=== PATIENT | female | born 2005 | race African-American/Black ===

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

== ENCOUNTER 2024-10-17 19:20 | Emergency (ER) | payer OTHER, SELFPAY ==
[2024-10-17 19:20] VITALS: BP 121/96; PULSE 111; RESP 18; TEMP 36.9; O2SAT 100; BMI 29.3
[2024-10-17 19:22] VITALS: BP 124/83; PULSE 74; RESP 18; TEMP 36.6; O2SAT 97
--- NOTE | 2024-10-17 19:27 | EDS_ITS ---
HPI History of Present Illness Chief Complaint: Shortness of Breath Informant: patient Onset/Context/Timing Onset: Yesterday Context: gradual Timing: Continuous Quality: Positive for Dyspnea on exertion Worsened by: Exertion and - (Standing) Relieved by: Nothing Associated Symptoms cough, fever, sore throat, yellow sputum and green sputum; Negative for rhinorrhea, post nasal drip, ear pain, clear sputum or white sputum Narrative Narrative: Patient presents with shortness of breath that began yesterday. Patient states that it became worse today. Patient states that it came on gradually. Patient states that has been constant. Patient states her breathing is worse with any exertion. Patient states it was also worse with standing. Patient states nothing seems to help with it. Patient admits to a cough with yellow and green sputum. Patient also admits to a sore throat. Patient states she had a fever 2 days ago that was up to 102. Patient also admits to some pain in her chest that is sharp and is worse with coughing and deep breathing. Patient states she went to the wellness center at the [facility] [place] and was referred to the emergency department for possible pneumonia. [facility] Medical History no medical history no medical history Home Medications ?Medication ?Instructions ?Recorded ?Last Taken ?Type cyclobenzaprine 10 mg tablet 10 mg PO TID PRN Muscle Spasm #20 10/28/23 Unknown Rx TABLETS Allergy/AdvReac Type Severity Reaction Status Date / Time No Known Allergies Allergy Verified 10/17/24 19:20 Family History no significant family his Surgical History no surgical history no surgical history Social History Smoking Status: Never smoker ROS [facility] ED Constitutional Constitutional ED: Reports fever(s); Denies chills Eyes Eyes: Reports blurry vision; Denies diplopia ENT ENT ED: Reports sore throat; Denies rhinorrhea Cardiovascular Cardiovascular: Reports chest pain; Denies palpitations Respiratory/Chest Respiratory/Chest: Reports cough and dyspnea Gastrointestinal Gastrointestinal: Denies nausea or vomiting Genitourinary Genitourinary ED: Denies dysuria or hematuria Musculoskeletal Musculoskeletal: Denies back pain or neck pain Integumentary Denies abscess or rash Neurologic Neurologic: Denies headache(s) or weakness Allergic/Immunologic Allergic/Immunologic ED: Denies mouth swelling or urticaria EXAM Physical Exam Const Vital Signs: 10/17/24 19:20 10/17/24 19:22 10/17/24 19:28 Temperature 98.4 F 97.9 F Temperature Source Oral Oral Pulse Rate 111 H 74 Respiratory Rate 18 18 Respiratory Effort Short of Breath Respiratory Depth Normal Respiratory Pattern Normal Blood Pressure 121/96 H 124/83 H Blood Pressure Mean 104 96 Pulse Ox 100 97 Oxygen Delivery Method Room Air Room Air Room Air 10/17/24 20:22 Temperature 97.8 F Temperature Source Oral Pulse Rate 64 Respiratory Rate 18 Respiratory Effort Respiratory Depth Respiratory Pattern Blood Pressure 132/74 H Blood Pressure Mean 93 Pulse Ox 98 Oxygen Delivery Method T-piece Positive well nourished and well developed General Appearance ED: well developed and NAD HEENT Reports moist mucous membranes Neck supple and no JVD Resp normal respiratory effort Auscultation: diminished lung sounds diffuse Cardio regular rhythm Rate: tachycardic GI non-tender and non-distended Palpation: soft Neuro oriented x3, CN's II-XII intact bilaterally and no sensory deficits noted [place] Coma Scale: document GCS findings Spontaneous Obeys Commands Oriented 15 Sensorium / Orientation: alert Speech: speech normal Motor Exam: strength 5/5 throughout Psych mental status grossly normal MDM MDM MDM Narrative Medical decision making narrative: Differential diagnose includes pneumonia, bronchitis, and viral upper respiratory infection. Serum hCG will be obtained to assess for . Chest x-ray will be obtained to assess for pneumonia and pneumothorax. Lab Data Attestation: I reviewed the patient's lab results. Lab results narrative: Serum hCG was reviewed and was negative. Labs: Laboratory Results - last 24 hr 10/17/24 19:38 Serum , Qual NEGATIVE Radiography Chest X-Ray - ED: 2 View, Read by ED Physician, Read by Radiologist and No Acute Disease Diagnostic Testing: Clinical Impression(s) from Imaging Studies Chest X-Ray 10/17/24 19:58 IMPRESSION: No radiographic evidence of acute cardiopulmonary disease. Electronically Signed: Tay Pereira MD at 20:39 EST , PA and lateral chest x-ray was obtained. There are 2 views. On my independent interpretation, lung cardenas are clear. There is normal cardiac silhouette. Bony thorax is normal. There is no acute process noted. Radiologist also interpreted the x-ray and agrees. Treatment and Re-Evaluation :: Patient was given a DuoNeb aerosol here. Patient was feeling better on reevaluation. Patient was advised of her findings. Patient was advised that this is most likely a viral upper respiratory infection. Patient was instructed to drink plenty of fluids. Patient was instructed to take Tylenol or ibuprofen as needed for any pain or fevers. Patient was instructed to follow-up with her primary care physician in 5 to 7 days. Patient understood and was agreeable with the plan. All questions were answered. Discharge Plan Triage Chief Complaint: Shortness of Breath ED Provider: Himanshu Florentino Dx/Rx/DC Orders Clinical Impression: Viral URI, Cough Instructions: ED URI, Viral, No Abx (Adult) Prescriptions: No Action cyclobenzaprine 10 mg tablet 10 mg PO TID PRN (Reason: Muscle Spasm) Qty: 20 0RF Primary Care Provider: Care Physician,No Primary Referrals: Care Physician,No Primary [Primary Care Provider] - Print Language: Bahamian Disposition Disposition: Home, Self Care
[2024-10-17 19:48] VITALS: PULSE 106; RESP 16
[2024-10-17] MEDS: Ipratropium/Albuterol Sulfate 3 ML AMPUL.NEB INHALATION (19:48)
--- NOTE | 2024-10-17 19:58 | RAD_ITS ---
EXAM: XR CHEST, 2 VIEWS CLINICAL INDICATION: Cough TECHNIQUE: Frontal and lateral views of the chest. COMPARISON: No relevant prior studies available. FINDINGS: LUNGS AND PLEURAL SPACES: Unremarkable. No consolidation or edema. No pneumothorax. No effusion. HEART: Unremarkable. Cardiac silhouette not enlarged. MEDIASTINUM: Central airways and mediastinal contour are unremarkable. BONES/JOINTS: Unremarkable. No acute fracture. SOFT TISSUES: Unremarkable. RAD/Chest PA and Lateral IMPRESSION: No radiographic evidence of acute cardiopulmonary disease. Electronically Signed: Tay Pereira MD at 20:39 EST ,
[2024-10-17 20:06] LABS: Internal QC Validated? YES +Cl - CLEAR BKGD; Pregnancy, Serum, hCG Quali. NEGATIVE Negative; Record Kit Lot#, Serum Preg. 869294
[2024-10-17 20:22] VITALS: BP 132/74; PULSE 64; RESP 18; TEMP 36.6; O2SAT 98
[2024-10-17 20:46] VITALS: BP 134/64; PULSE 68; RESP 16; TEMP 36.9; O2SAT 98
== END 2024-10-17 20:49 | disposition home or self-care (01) ==
PROVIDERS: Emergency Provider Emergency Medicine; Referring Provider Emergency Medicine; Visit Provider Emergency Medicine
DX: J06.9 Acute upper respiratory infection, unspecified (principal); R05.9 Cough, unspecified
CPT/HCPCS: 71046; 84703; 94640; 99282